=== PATIENT | female | born 1975 | race African-American/Black ===

== ENCOUNTER 2019-12-07 03:50 | Emergency (ER) | payer OTHER ==
[2019-12-07 09:44] VITALS: BP 131/85
--- NOTE | 2019-12-07 10:15 | ER Document Report ---
ED General - General Chief Complaint: Other Stated Complaint: HARD TIME SLEEPING Time Seen by Provider: 12/07/19 09:17 Mode of Arrival: Ambulatory Information source: Patient Notes: 44-year-old woman presents to the emergency department with a history of occultly sleeping. Apparently she has been on Latuda at 40 mg daily, her therapist with her request I cut the dose to 20 mg. She began having sleeping difficulty last night. She went back to the 40 mg dose, however has not slept in the last 23 hours. She has trazodone 50 mg and her medication container. TRAVEL OUTSIDE OF THE [place] IN LAST 30 DAYS: Yes - Related Data Allergies/Adverse Reactions: No Known Allergies Allergy (Unverified 12/07/19 05:02) Past Medical History - Social History Smoking Status: Never Smoker Chew tobacco use (# tins/day): No Frequency of alcohol use: None Drug Abuse: None Family History: Reviewed & Not Pertinent Patient has suicidal ideation: No Patient has homicidal ideation: No Review of Systems - Review of Systems Notes: Constitutional: Negative for fever. HENT: Negative for sore throat. Eyes: Negative for visual changes. Cardiovascular: Negative for chest pain. Respiratory: Negative for shortness of breath. Gastrointestinal: Negative for abdominal pain, vomiting or diarrhea. Genitourinary: Negative for dysuria. Musculoskeletal: Negative for back pain. Skin: Negative for rash. Neurological: + Sleep difficulty, + anxiety, negative for headaches, weakness or numbness. 10 point ROS negative except as marked above and in HPI. Physical Exam - Vital signs Vitals: Temp Pulse Resp BP Pulse Ox 98.7 F 82 18 150/91 H 100 12/07/19 03:56 12/07/19 03:56 12/07/19 03:56 12/07/19 03:56 12/07/19 03:56 - Notes Notes: PHYSICAL EXAMINATION: Physical Exam: General: Well-nourished well-developed 44-year-old female in no acute distress HEENT: NC/AT, pupils equal round and reactive to light, MM moist,nares clear, o ropharynx clear, airway patent Neck: supple, no adenopathy, no masses. Good range of motion Lungs: clear, no wheezing, no rales no rhonchi CVS: Regular rate and rhythm no murmur gallop or rub Abdomen: Soft, active, nontender, no masses, no hepatosplenomegaly Ext: No edema, clubbing or cyanosis. Neuro: Alert and responsive, moving all 4 extremities on command, cranial nerves intact, no focal findings Skin: Intact no open lesions, no rash PSYCH: Anxious, speech normal, denies auditory or visual hallucinations, denies homicidal or suicidal ideation, judgment good Course - Re-evaluation Re-evalutation: 12/07/19 09:45 I have discussed with the patient the difficulty that she is having with sleep and suggested that she increase her trazodone to 100 mg at bedtime. Also suggest that she should follow-up with her provider regarding the change in her dosage of Latuda. Patient is in agreement with this plan and is going to be discharged home to follow-up as an outpatient. - Vital Signs Vital signs: Temp Pulse Resp BP Pulse Ox 98.2 F 78 18 131/85 H 98 12/07/19 09:42 12/07/19 09:42 12/07/19 09:42 12/07/19 09:42 12/07/19 09:42 Discharge - Discharge Clinical Impression: Insomnia Qualifiers: Insomnia type: psychophysiologic Qualified Code(s): F51.04 - Psychophysiologic insomnia Condition: Good Disposition: HOME, SELF-CARE Instructions: Insomnia (OM) Additional Instructions: Your insomnia appears to be related to changes in your medications, you may increase her trazodone to 100 mg and find a quiet place to rest. Please follow- up with your history provider tomorrow regarding the Latuda dosage and future plan. If you continue to have significant difficulties you may return to the emergency department for further evaluation and treatment.
== END 2019-12-07 10:20 | disposition home or self-care (01) ==
LOC: ER 03:50
DX: F51.04 Psychophysiologic insomnia (principal); Z79.899 Other long term (current) drug therapy; F41.9 Anxiety disorder, unspecified
CPT/HCPCS: 99283